=== PATIENT | female | born 1955 | race Caucasian/White ===

== ENCOUNTER 2018-04-15 09:51 | Day surgery (SDC) | payer OTHER ==
[~2018-04-15 09:51] MED LIST: HYDACE5 PO; HYDROCODONE PO; IBUP400 PO; LORA.5 PO; Percocet 5-3251 EACH PO; TELM20; TRAACE PO; TRIHYD253A PO; VERAPAMIL PO
== END 2018-04-15 23:09 | disposition home or self-care (01) ==
LOC: MOI MAM 09:51
PROC: 0HBU3ZX Excision of Left Breast, Percutaneous Approach, Diagnostic (ICD-10-PCS; principal; 2018-04-15)
DX: D05.12 Intraductal carcinoma in situ of left breast (principal)
CPT/HCPCS: 19081

== ENCOUNTER 2018-05-06 08:34 | Day surgery (SDC) | payer OTHER ==
[~2018-05-06 08:34] MED LIST changes: +LISI20 PO
== END 2018-05-06 23:01 | disposition home or self-care (01) ==
LOC: MOI MAM 08:34
PROC: BH01ZZZ Plain Radiography of Left Breast (ICD-10-PCS; principal; 2018-05-06)
DX: C50.212 Malignant neoplasm of upper-inner quadrant of left female breast (principal)
CPT/HCPCS: 19281

== ENCOUNTER 2018-05-07 07:24 | Day surgery (SDC) | payer OTHER ==
[~2018-05-07] VITALS: Ht 160 cm; Wt 68.5 kg
== END 2018-05-07 22:46 | disposition home or self-care (01) ==
LOC: RAD 07:24 → ORSCMMR 07:24 → RAD 08:00 → NM 09:00 → ORSCMMR 22:46 → RAD 22:46
PROVIDERS: Surgery
PROC: 0HBU0ZZ Excision of Left Breast, Open Approach (ICD-10-PCS; principal; 2018-05-07 12:00)
PROC: 07B60ZX Excision of Left Axillary Lymphatic, Open Approach, Diagnostic (ICD-10-PCS; principal; 2018-05-07 12:00)
DX: C50.212 Malignant neoplasm of upper-inner quadrant of left female breast (principal); D36.0 Benign neoplasm of lymph nodes; F17.210 Nicotine dependence, cigarettes, uncomplicated; Z86.73 Personal history of transient ischemic attack (TIA), and cerebral infarction without residual deficits; Z79.899 Other long term (current) drug therapy
CPT/HCPCS: 38792; 88305; 88307; A9520; J0690; J1100; J1885; J2250; J2405; J2765; J3010; J7120; Q9968